=== PATIENT | male | born 1940 | race Caucasian/White ===

== ENCOUNTER 2023-01-09 13:49 | Inpatient (IN) | payer OTHER ==
[~2023-01-09] VITALS: Ht 175.3 cm; Wt 77.6 kg
[2023-01-09 13:51] VITALS: BP 119/42
--- NOTE | 2023-01-09 14:04 | NUR ---
ASSUMED PATIENT CARE, NURSING ASSESSMENT COMPLETED.
[2023-01-09] MEDS ORDERED: EPOE3000 IV (14:07)
[2023-01-09] MEDS ORDERED: LINA5TAB PO (14:14)
[2023-01-09] MEDS ORDERED: SEVE800T6 PO (14:14)
[2023-01-09] MEDS ORDERED: CARV3.12 PO (14:14)
[2023-01-09] MEDS ORDERED: AMLO10TA PO (14:14)
[2023-01-09] MEDS ORDERED: SENN-73 PO (14:14)
[2023-01-09] MEDS ORDERED: APIX5TAB PO (14:14)
[2023-01-09] MEDS ORDERED: VITB12 PO (14:14)
[2023-01-09] MEDS ORDERED: GEMF600T5 PO (14:14)
[2023-01-09] MEDS ORDERED: GABA100C PO (14:14)
[2023-01-09] MEDS ORDERED: TAMS0.4C96 PO (14:14)
[2023-01-09 14:53] LABS: BASOPHILS % (AUTO) 0.5 % (0.0-2.0); EOSINOPHILS % (AUTO) 0.3 % (0.0-4.0); HEMATOCRIT 30.2 % (36-52); LYMPHOCYTES # (AUTO) 0.6 K/uL (2.0-11.5); MEAN CORPUSCULAR HEMOGLOBIN 33 pg (27-31); MEAN CORPUSCULAR HGB CONC 33 g/dL (33-37); MEAN CORPUSCULAR VOLUME 99.6 fL (80-94); MONOCYTES # (AUTO) 0.6 K/uL (0.8-1.0); MONOCYTES % (AUTO) 12.1 % (1.7-9.3); NEUTROPHILS # (AUTO) 3.7 K/uL (1.8-7.7); NEUTROPHILS % (AUTO) 75.1 % (42.2-75.2); PLATELET COUNT (AUTO) 171 K/uL (140-450); RED BLOOD CELL COUNT(AUTO) 3.04 MIL/uL (4.20-6.10); RED CELL DISTRIBUTION WIDTH 18.9 % (11.6-13.7); WHITE BLOOD COUNT (AUTO) 4.9 K/uL (4.8-10.8)
[2023-01-09 15:12] LABS: ALBUMIN 3.3 g/dL (3.4-5.0); ASPARTATE AMINOTRANSFERASE 20 U/L (15-37); CARBON DIOXIDE 27.8 mmol/L (21-32); CHLORIDE 99 mmol/L (98-107); CREATININE 2.6 mg/dL (0.6-1.3); GLUCOSE 104 mg/dL (74-106); POTASSIUM 3.8 mmol/L (3.5-5.1); SODIUM SERUM 139 mmol/L (136-145); TOTAL BILIRUBIN 0.6 mg/dL (0.0-1.0); UREA NITROGEN, BLOOD 24 mg/dL (7-18)
--- NOTE | 2023-01-09 16:16 | NUR ---
DR MALONE AT BEDSIDE, UPDATING PATIENT AND .
--- NOTE | 2023-01-09 19:30 | NUR ---
ASSUMED CARE OF PT. ASSISTED PT TO RESTROOM X1BM. DAUGHTER AT BEDSIDE. DAUGHTER SWITCHED WITH AND HAS BEEN AT BEDSIDE UNTIL ADMISSION
--- NOTE | 2023-01-09 19:55 | NUR ---
PT BACK IN ROOM AND ON SECOND HELPER. CONTINUES TO BE AT BEDSIDE. PT TOLERATED APPLESAUCE WELL
[2023-01-09] MEDS ORDERED: ZOLPIDEM 5 MG TAB PO PRN (20:25)
[2023-01-09] MEDS ORDERED: guaiFENesin DM 200/20 MG-10 ML 10 ML UDC PO PRN (20:25)
[2023-01-09] MEDS ORDERED: HYDROcodone/APAP 7.5/325 MG 1 TAB PO PRN (20:25)
[2023-01-09] MEDS ORDERED: ACETAMINOPHEN 325 MG TAB PO PRN (20:25)
[2023-01-09] MEDS ORDERED: DOCUSATE SODIUM 100 MG GELCAP PO PRN (20:25)
[2023-01-09] MEDS ORDERED: POTASSIUM CHLORIDE 10 MEQ TABER PO PRN (20:25)
[2023-01-09] MEDS ORDERED: ONDANSETRON 4 MG/2 ML VIAL IM/IVP PRN (20:25)
[2023-01-09] MEDS: DEXT 5% /NACL 0.9% 1,000 ML IV SCH (20:33)
[2023-01-09] MEDS ORDERED: GABAPENTIN 100 MG CAP PO SCH (21:00)
[2023-01-09] MEDS: carvediloL 3.125 MG TAB PO SCH (21:00)
[2023-01-09] MEDS: APIXABAN 2.5 MG TAB PO SCH (21:00)
--- NOTE | 2023-01-09 21:00 | NUR ---
RECEIVED PATIENT FROM ER NURSE VIA [facility] FOR CONTINUITY OF CARE. ADMITTED FOR ALOC. PT IS ALERT X 2 AT THIS TIME. PIV INTACT AND PATENT. WILL CONTINUE TO MONITOR
--- NOTE | 2023-01-09 21:17 | NUR ---
Patient will be admitted to care of DR. RYDER. Admited to MED SURG. Will go to [id number]. Belongings list completed. Report to LILIAN DILLARD.
[2023-01-09 21:37] LABS: CHOL/HDL RATIO 1.9 (1-4.5); FREE T4 (FREE THYROXINE) 1.17 ng/dL (0.76-1.46); MAGNESIUM 1.9 mg/dL (1.8-2.4); PHOSPHORUS 2.9 mg/dL (2.5-4.9)
[2023-01-09 22:03] LABS: THYROID STIMULATING HORMONE 1.08 uIU/mL (0.34-3.74)
[2023-01-09] MEDS ORDERED: cefTRIAXone 1,000 MG VIAL ONE (22:46)
[2023-01-10] VITALS: BP 133/79
--- NOTE | 2023-01-10 02:00 | NUR ---
PATIENT SLEEPING COMFORTABLY, NO DISTRESS NOTED
[2023-01-10 04:00] VITALS: BP 115/65
[2023-01-10 06:59] LABS: BASOPHILS # (AUTO) 0.1 K/uL (0.00-0.22); BASOPHILS % (AUTO) 2.1 % (0.0-2.0); HEMATOCRIT 29.8 % (36-52); HEMOGLOBIN 9.7 g/dL (12.0-18.0); LYMPHOCYTES # (AUTO) 0.8 K/uL (2.0-11.5); MEAN CORPUSCULAR HEMOGLOBIN 33 pg (27-31); MEAN CORPUSCULAR HGB CONC 33 g/dL (33-37); MEAN CORPUSCULAR VOLUME 100.3 fL (80-94); MONOCYTES # (AUTO) 0.7 K/uL (0.8-1.0); NEUTROPHILS # (AUTO) 2.4 K/uL (1.8-7.7); NEUTROPHILS % (AUTO) 60.9 % (42.2-75.2); PLATELET COUNT (AUTO) 168 K/uL (140-450); RED BLOOD CELL COUNT(AUTO) 2.97 MIL/uL (4.20-6.10); RED CELL DISTRIBUTION WIDTH 19.2 % (11.6-13.7)
[2023-01-10 07:18] LABS: ANION GAP 15.8 (8-16); CARBON DIOXIDE 26.1 mmol/L (21-32); CHLORIDE 101 mmol/L (98-107); CREATININE 3.3 mg/dL (0.6-1.3); GLUCOSE 82 mg/dL (74-106); POTASSIUM 3.9 mmol/L (3.5-5.1); SODIUM SERUM 139 mmol/L (136-145); UREA NITROGEN, BLOOD 33 mg/dL (7-18)
--- NOTE | 2023-01-10 07:56 | NUR ---
GOT REPORT FROM THE NIGHT NURSE, PT SLEEPING, NO SOB.[id number]
[2023-01-10 08:00] VITALS: BP 128/54
--- NOTE | 2023-01-10 09:14 | NUR ---
PATIENT HAS BEEN SCREENED AND CATEGORIZED MODERATE NUTRITION RISK. PATIENT WILL BE SEEN WITHIN 3-5 DAYS OF ADMISSION. 01/09/23-01/14/[address] Addendum: 01/11/23 at [address] CONSULT REQUEST RECEIVED 01/11/23 PT WAS RE-ASSESSED AND CATEGORIZED HIGH RISK. PATIENT WILL BE SEEN WITHIN 1-2 DAYS OF REFERRAL. 01/11/23-01/13/23
[2023-01-10] MEDS: carvediloL 3.125 MG TAB PO SCH ×2 (09:19→21:45)
[2023-01-10] MEDS: APIXABAN 2.5 MG TAB PO SCH ×2 (09:19→21:47)
[2023-01-10] MEDS: amLODIPine 5 MG TAB PO SCH (09:21)
[2023-01-10] MEDS: PANTOPRAZOLE 40 MG TABEC PO SCH (09:23)
[2023-01-10 12:00] VITALS: BP 128/54
--- NOTE | 2023-01-10 14:26 | NUR ---
DC PLANN[age] YRS OLD MALE PATIENT WAS ADMITTED FROM HOME WITH A DX OF ALOC, RASHAD. PATIENT HAS A HX OF ESRD ON HD TTHS , HTN, DM, A-FIB ON ELIQUIS CAD AND RT LOWER EXTREMITY CELLULITIS. CXR SHOWED SMALL TO MODERATE RIGHT PLEURAL EFFUSION RAPID COVID TEST NEGATIVE. CT HEAD NEGATIVE. ADMINISTERED IVF, IV ABX ROCEPHIN AND CONTINUED HOME MEDS. CONSULTED WITH CARDIO, WOUND CARE AND NEPHRO. DC PLAN TO TO GO HOME AND CONTINUED WITH [facility]. CM TO FOLLOW
--- NOTE | 2023-01-10 14:42 | NUR ---
DC PLANNING ASSESSMENT COMPLETE PLEASE REFER TO ASSESSMENT FOR ADDITIONAL DETAILS [facility] TENTATIVE DC PLAN IS FOR PT TO RETURN HOME RESUMING HH WHEN CLEARED FOR DC. FAMILY TO PROVIDE TRANSPORTATION , WHEN MEDICALLY STABLE. [facility] PT WILL NEED TO BE REEVALUATED BY [facility] DC TO RESUME HH. SW ENDORSED TO MAX SANTANA AWARE. Addendum: 01/10/23 at 1444 by Kenneth BROWN Amended: Links added.
--- NOTE | 2023-01-10 15:52 | NUR ---
WOUND CARE EVALUATION NOTE: SKIN ASSESSMENT DONE WITH THIS 82 Y/O PT ADMITTED WITH INITIAL DX AMS. PAST MEDICAL HX INCLUDES HX ESRD ON HD, HYPERTENSION, DIABETES, ATRIAL FIBRILLATION ON ELIQUIS, CAD AND RIGHT LOWER EXTREMITY CELLULITIS. PT ADMITTED WITH PRESSURE INJURY SACRALCOCCYX AND DIABETIC ULCER. ALL ABOVE INFORMATION OBTAINED FROM ADMISSION H&P AND CHART REVIEW. PT IS AAX2, FORGETFUL. SKIN IS WARM AND DRY, BILATERAL LOWER EXTREMITY NO EDEMA. DORSAL PEDAL PULSES PRESENT AND NORMAL. CAPILLARY REFILLED >2 SEC. X 10 TOES. F/C PATENT WITH SMALL AMOUNT KAYY COLOR URINE OUT PUT OBSERVED. FLEXI SEAL PATENT WATERY BROWN STOOL OUTPUT OBSERVED. PT. ON LEVOPHED DRIP FOR MAINTENANCE BP. NINFA SCALE BETWEEN AT HIGH RISK. PLAN OF CARE DISCUSSED WITH PRIMARY RN JESSI. RECOMMEND DR. BRITO CONSULT. INTEGUMENTARY: -COCCYX PRESSURE INJURY STAGE 3 WITH 2X1X0.2CM WOUND BED PALE PINK, MOIST, NO ODOR, TAHIRA WOUND SKIN HEALING SCAR, PINK TISSUE, MOIST, INTACT. -LEFT PRESSURE INJURY STAGE 1 NON-BLANCHABLE WITH 1X2CM - LEFT HEEL DIABETIC ULCER 3X3CM. WOUND BED 100% BLACK, DRY, WOUND EDGE DETACHED, NO DRAINAGE, NO ODOR., IRREGULAR SHAPE. TAHIRA-WOUND DTI, MUSHY SKIN. RECOMMENDATION: -APPLY FOAM DRESSING TO LEFT HIP DAILY AND PRN IF SOILING -CLEANSE COCCYX WITH NS, PAT DRY, APPLY HYDROGEL TO WOUND BED AND APPLY Z GUARD TO TAHIRA WOUND SKIN Q DAY AND PRN IF SOILING. -APPLY SOAKED 4X4 BETADINE GAUZES TO RIGHT HEEL, WRAP COVER WITH DRY DRESSING AND WRAP WITH KERLIX ROLL SECURED WITH TAPE QD AND PRN IF SOILING -POSITIONING: TURN AND REPOSITION PATIENT Q 2H OR SOONER USE PILLOWS TO KEEP BONY PROMINENCES FROM DIRECT CONTACT WITH SURFACES USE REPOSITIONING WEDGES TO PROVIDE 30-DEGREE ANGLE FOR SIDE LYING POSITIONS OFFLOADING OR FOAM DRESSING TO ALL TUBING TO PREVENT MEDICAL DEVICES RELATED PRESSURE INJURY -RE-EVALUATING AND MANAGING INCONTINENCE MONITOR SKIN CONDITION DURING POSITION CHANGE DO NOT MASSAGE REDNESS, BONY PROMINENCES FREQUENT TAHIRA-CARE AND PROVIDE BARRIER CREAMS PRN IF SOILING MOISTURE CONTROL BY OFFER BED DOUGLAS/URINAL /ABSORBENT PAD TO WICK AND HOLD MOISTURE. MAY OBTAIN ORDER FOR FLEX SEAL, RECTAL BAG OR VIGIL CATHETER PER PHYSICIAN ORDER UNLESS OTHERWISE CONTRAINDICATED KEEP SKIN DRY AND PROTECT FROM FRICTION -MANAGE FRICTION/SHEAR/MOBILITY KEEP HOB AT THE LOWEST LEVEL OF ELEVATION NO MORE THAN 30 DEGREES UNLESS OTHERWISE CONTRAINDICATED USE LIFT SHEET OR TRANSFER DEVICE TO MOVE PATIENT AND PREVENT LATERAL SHEER. CONSIDER TRAPEZE IF APPROPRIATE PROTECT HEELS, ELBOWS BONY PROMINENCES WITH SKIN BERRIES OR FOAM DRESSING IF EXPOSED TO FRICTION OFFLOAD BILATERAL HEELS BY PLACING PILLOWS UNDER CALVES AT ALL TIMES, UNLESS OTHERWISE CONTRAINDICATED -PRESSURE REDISTRIBUTION SURFACE THERAPY NESTOR ISOFLEX SABRINA MATTRESS -NUTRITION: PLEASE FOLLOW RD RECOMMENDATIONS AND OFFER NUTRITION SUPPLEMENTS IF ORDERED. PLEASE CONTACT WOUND CARE NURSE FOR ANY QUESTION AND CHANGE OF WOUND CONDITION.
[2023-01-10] MEDS ORDERED: FOAM DRESSING TP PRN (15:55)
[2023-01-10 16:00] VITALS: BP 124/48
[2023-01-10] MEDS: DEXT 5% /NACL 0.9% 1,000 ML IV SCH (19:10)
[2023-01-10 20:00] VITALS: BP 126/66
[2023-01-11] VITALS: BP 122/66
[2023-01-11 04:00] VITALS: BP 118/62
[2023-01-11 07:09] LABS: BASOPHILS # (AUTO) 0.1 K/uL (0.00-0.22); BASOPHILS % (AUTO) 0.6 % (0.0-2.0); EOSINOPHILS % (AUTO) 0.3 % (0.0-4.0); HEMATOCRIT 25.7 % (36-52); HEMOGLOBIN 8.6 g/dL (12.0-18.0); LYMPHOCYTES # (AUTO) 0.7 K/uL (2.0-11.5); MEAN CORPUSCULAR HEMOGLOBIN 34 pg (27-31); MEAN CORPUSCULAR HGB CONC 34 g/dL (33-37); MEAN CORPUSCULAR VOLUME 99.9 fL (80-94); MONOCYTES # (AUTO) 1.1 K/uL (0.8-1.0); MONOCYTES % (AUTO) 12.8 % (1.7-9.3); NEUTROPHILS # (AUTO) 6.9 K/uL (1.8-7.7); NEUTROPHILS % (AUTO) 78.3 % (42.2-75.2); PLATELET COUNT (AUTO) 156 K/uL (140-450); RED BLOOD CELL COUNT(AUTO) 2.57 MIL/uL (4.20-6.10); RED CELL DISTRIBUTION WIDTH 18.9 % (11.6-13.7); WHITE BLOOD COUNT (AUTO) 8.8 K/uL (4.8-10.8)
--- NOTE | 2023-01-11 07:14 | NUR ---
ENDORSED FOR CONT. OF CARE .
--- NOTE | 2023-01-11 07:19 | NUR ---
GOT REPORT FROM THE NIGHT NURSE , PT SLEEPING NO SOB.[email or web address]
[2023-01-11 07:28] LABS: ANION GAP 13.5 (8-16); CARBON DIOXIDE 26.2 mmol/L (21-32); CHLORIDE 102 mmol/L (98-107); CREATININE 3.9 mg/dL (0.6-1.3); GLUCOSE 91 mg/dL (74-106); POTASSIUM 3.7 mmol/L (3.5-5.1); SODIUM SERUM 138 mmol/L (136-145); UREA NITROGEN, BLOOD 47 mg/dL (7-18)
[2023-01-11 08:00] VITALS: BP 127/51
[2023-01-11 08:08] LABS: T4 (THYROXINE) 6.5 ug/dL (4.5-12.0)
[2023-01-11] MEDS ORDERED: TAMSULOSIN 0.4 MG CAP PO SCH (08:30)
[2023-01-11] MEDS: SEVELAMER CARBONATE 800 MG TAB PO SCH ×3 (08:44→17:41)
[2023-01-11] MEDS: PANTOPRAZOLE 40 MG TABEC PO SCH (08:44)
[2023-01-11] MEDS: APIXABAN 2.5 MG TAB PO SCH ×2 (08:45→20:51)
[2023-01-11] MEDS: amLODIPine 5 MG TAB PO SCH (08:45)
[2023-01-11] MEDS: carvediloL 3.125 MG TAB PO SCH ×2 (08:45→20:52)
[2023-01-11 12:00] VITALS: BP 127/51
[2023-01-11] MEDS ORDERED: SKINTEGRITY HYDROGEL TP SCH (13:00)
[2023-01-11] MEDS ORDERED: FOAM DRESSING TP SCH (13:00)
[2023-01-11] MEDS ORDERED: Z-GUARD PASTE TP SCH (13:00)
[2023-01-11] MEDS ORDERED: GAUZE TP SCH (13:00)
[2023-01-11] MEDS ORDERED: ALBUMIN HUMAN 25% 100 ML IV ONE (13:04)
[2023-01-11] MEDS ORDERED: ALBUMIN HUMAN 25% 100 ML IV SCH (13:10)
--- NOTE | 2023-01-11 14:10 | NUR ---
01/11/23 RD INITIAL ASSESSMENT COMPLETED PLEASE REFER TO NUTRITION ASSESSMENT UNDER CARE ACTIVITY FOR ESTIMATED NUTRITIONAL NEEDS. 1. RECOMMEND ADDING [id number] TO RENAL DIET TOLERATED 2. RECOMMEND MIKO BID FOR WOUND SUPPORT -PROVIDES 160 KCAL AND 5 GM PROTEIN DAILY 3. PROVIDED NUTRITION EDUCATION AND HANDOUTS FOR CARB COUNTING AND RENAL DIET 4. RD TO FOLLOW-UP 7 DAYS, LOW RISK REVIEWED BY ALON SIMMONS RD
[2023-01-11 16:00] VITALS: BP 125/54
--- NOTE | 2023-01-11 16:27 | NUR ---
PHYSICAL THERAPY CO-SIGN The Physical Therapy Progress Notes documented by Business Broker have been reviewed. Reviewed/Co-Signed by: Carolina Bartlett PT Documentation Done by:NATE YOON PROBATION OFFICER Addendum: 01/11/23 at 1627 by Carolina Bartlett PT Amended: Links added.
[2023-01-11] MEDS: DEXT 5% /NACL 0.9% 1,000 ML IV SCH (19:30)
--- NOTE | 2023-01-11 19:30 | NUR ---
pt had large BM in the bathroom. he had dialysis, taken out 2litter .[email or web address]
--- NOTE | 2023-01-11 19:36 | NUR ---
gave report the night nurse pt stable. [email or web address]
--- NOTE | 2023-01-11 19:52 | NUR ---
RECEIVED REPORT FROM DAY SHIFT NURSE FOR CONTINUITY OF CARE. PT IS AWAKE, A&O X1. CURRENTLY ON 2L NASAL CANULA, NO SIGNS OF ACUTE RESPIRATORY DISTRESS NOTED. PT IS ON BED REST BUT IS ABLE TO AMBULATE TO THE BATHROOM WITH ASSISTANCE. PT HAS SMALL SACRAL WOUND BUT OVERALL SKIN IS INTACT. IV SITE TO RIGHT AC, INTACT AND PATENT. CALL LIGHT WITHIN REACH, SAFETY MEASURES IN PLACE. WILL MONITOR THROUGHOUT SHIFT.
[2023-01-11 20:00] VITALS: BP 128/53
--- NOTE | 2023-01-11 20:00 | NUR ---
Patient's Plan of Care was discussed and reviewed with TULIO ALSTON:
--- NOTE | 2023-01-11 21:47 | NUR ---
SCHEDULED MEDICATIONS ADMINISTERED WITH NO COMPLICATIONS. PT TOLERATED WELL. WILL CONTINUE TO MONITOR THE PT.
--- NOTE | 2023-01-12 00:40 | NUR ---
PT ASLEEP AT THIS TIME. RESPIRATIONS EVEN AND UNLABORED. CHEST RISE AND FALL NOTED. WILL CONTINUE TO MONITOR THE PT.
[2023-01-12 04:00] VITALS: BP 105/46
--- NOTE | 2023-01-12 05:31 | NUR ---
PT SLEPT WELL THROUGHOUT SHIFT. VOIDED TWICE WITH LITTLE OUTPUT. NO COMPLAINTS OF PAIN AT THIS TIME, NO SOB. REPOSITIONED PT AND PLACED CALL LIGHT WITHIN REACH. WILL ENDORSE TO DAY SHIFT NURSE FOR CONTINUITY OF CARE.
[2023-01-12 06:55] LABS: BASOPHILS % (AUTO) 0.5 % (0.0-2.0); EOSINOPHILS % (AUTO) 0.1 % (0.0-4.0); HEMATOCRIT 24.1 % (36-52); LYMPHOCYTES # (AUTO) 0.5 K/uL (2.0-11.5); LYMPHOCYTES % (AUTO) 7.1 % (20.5-51.1); MEAN CORPUSCULAR HEMOGLOBIN 33 pg (27-31); MEAN CORPUSCULAR HGB CONC 33 g/dL (33-37); MEAN CORPUSCULAR VOLUME 100.3 fL (80-94); MONOCYTES # (AUTO) 1.2 K/uL (0.8-1.0); MONOCYTES % (AUTO) 17.1 % (1.7-9.3); NEUTROPHILS # (AUTO) 5.4 K/uL (1.8-7.7); NEUTROPHILS % (AUTO) 75.2 % (42.2-75.2); PLATELET COUNT (AUTO) 105 K/uL (140-450); RED CELL DISTRIBUTION WIDTH 18.8 % (11.6-13.7); WHITE BLOOD COUNT (AUTO) 7.2 K/uL (4.8-10.8)
[2023-01-12 07:22] LABS: ANION GAP 11.5 (8-16); CARBON DIOXIDE 27.2 mmol/L (21-32); CHLORIDE 102 mmol/L (98-107); CREATININE 3.1 mg/dL (0.6-1.3); GLUCOSE 102 mg/dL (74-106); POTASSIUM 3.7 mmol/L (3.5-5.1); SODIUM SERUM 137 mmol/L (136-145); UREA NITROGEN, BLOOD 33 mg/dL (7-18)
[2023-01-12] MEDS: amLODIPine 5 MG TAB PO SCH (09:00)
[2023-01-12] MEDS: APIXABAN 2.5 MG TAB PO SCH (09:00)
[2023-01-12] MEDS: carvediloL 3.125 MG TAB PO SCH (09:00)
[2023-01-12] MEDS: PANTOPRAZOLE 40 MG TABEC PO SCH (10:02)
[2023-01-12 12:00] VITALS: BP 118/52
--- NOTE | 2023-01-12 13:10 | NUR ---
fOUND PATIENT ON ONE LITER OXYGEN - PLACED PATIENT ON ROOM AIR FOR CHALLENGE - AT THIS TIME PATIENT SATURATIONS AT 90. STATED THAT HE SLEEPS BETTER WITH THE OXYGEN
[2023-01-12 15:06] LABS: FOLIC ACID 4.1 ng/mL (>3.0)
[2023-01-12 16:31] VITALS: BP 118/52
--- NOTE | 2023-01-16 11:04 | NUR ---
CALLED DR TERRI LOP[facility]S OFFICE LOCATED AT [address] [place] [address]. SPOKE WITH ALLI WHO INFORMED ME THAT PT HAD MADE APPOINTMENT FOR 04/28/2023 BUT IT WASN'T FOR A HOSPITAL FOLLOW UP, SHE ASKED FOR ME TO FAXED PAPERWORK OVER SO SHE CAN SCHEDULE A FOLLOW UP APPOINTMENT WITH PATIENT. CALLED PT AND INFORMED HIM OF THE ABOVE INFORMATION.
== END 2023-01-12 17:10 | disposition home or self-care (01) | DRG 291 ==
LOC: MED 13:49 → MMU 19:08 → MTU 20:18
PROVIDERS: ADMIT Internal Medicine; ATTEND Internal Medicine
PROC: 5A1D70Z Performance of Urinary Filtration, Intermittent, Less than 6 Hours Per Day (ICD-10-PCS; principal; 2023-01-10)
DX: I13.2 Hypertensive heart and chronic kidney disease with heart failure and with stage 5 chronic kidney disease, or end stage renal disease (principal); G93.41 Metabolic encephalopathy; I50.43 Acute on chronic combined systolic (congestive) and diastolic (congestive) heart failure; N18.6 End stage renal disease; N17.0 Acute kidney failure with tubular necrosis; L03.115 Cellulitis of right lower limb; I48.91 Unspecified atrial fibrillation; E83.51 Hypocalcemia; D53.9 Nutritional anemia, unspecified; Z20.822 Contact with and (suspected) exposure to COVID-19; E78.5 Hyperlipidemia, unspecified; N40.0 Benign prostatic hyperplasia without lower urinary tract symptoms; E83.39 Other disorders of phosphorus metabolism; G31.9 Degenerative disease of nervous system, unspecified; I25.10 Atherosclerotic heart disease of native coronary artery without angina pectoris; E11.22 Type 2 diabetes mellitus with diabetic chronic kidney disease; Z87.891 Personal history of nicotine dependence
CPT/HCPCS: 36415; 70450; 71045; 80048; 80053; 82140; 82150; 82607; 82746; 83036; 83690; 83735; 83880; 84100; 84436; 84439; 84443; 84479; 85025; 85610; 85730; 87040; 87081; 93005; 93880; 97112; 97116; 97163-GP; 97530; 99285; A6248; J0696; J1644; J7060; P9046; Q0092